=== PATIENT | male | born 2000 | race Two or more races ===

== ENCOUNTER 2023-04-05 13:57 | Emergency (ER) | payer BC ==
[2023-04-05] MEDS ORDERED: Ketorolac Tromethamine 30 MG (1 mL) VIAL ONE (15:04)
[2023-04-05 15:34] LABS: #Monocytes 0.6 thou/uL (0.11-0.59); %Basophils 0.3 % (0.0-1.0); %Eosinophils 0.1 % (0.0-10.0); %Lymphocytes 7.5 % (28.0-48.0); %Monocytes 4.4 % (0.0-4.0); %Neutrophils 87.1 % (31.0-61.0); Hematocrit 45.4 % (42.0-52.0); Hemoglobin 15.5 g/dL (14.0-18.0); Mean Corpuscular HGB CONC 34.1 g/dL (32.0-36.0); Mean Corpuscular Hemoglobin 30.6 pg (25.0-35.0); Mean Corpuscular Volume 89.7 fl (78.0-98.0); Mean Platelet Volume 10.3 fL (7.4-10.4); Platelet Count 242 10x3/uL (130-400); RBC Distribution Width 11.6 % (11.5-14.5); Red Blood Cell (RBC) Count 5.06 mill/uL (4.00-5.20); White Blood Cell (WBC) Count 12.6 10x3/uL (4.8-10.8)
[2023-04-05 15:55] LABS: ALT (SGPT) 16 U/L (8-55); AST (SGOT) 17 U/L (5-34); Albumin 4.4 g/dL (3.5-5.0); Alkaline Phosphatase 79 U/L (50-130); Anion Gap 14 mmol/L (10-20); BUN (Urea Nitrogen) 15 mg/dL (8.9-20.6); Bilirubin, Total 1.3 mg/dL (0.2-1.2); Calc. Creatinine Clearance 0 mL/min (70-130); Calcium 9.6 mg/dL (7.8-10.44); Carbon Dioxide 21 mmol/L (22-29); Chloride 106 mmol/L (98-107); Estimated GFR 128; Globulin 3.4 g/dL (2.4-3.5); Glucose 117 mg/dL (70-105); Lipase 7 U/L (8-78); Protein, Total 7.8 g/dL (6.0-8.3); Sodium 137 mmol/L (136-145)
[2023-04-05 15:58] LABS: Troponin I Less than 0.010 ng/mL (< 0.028)
[2023-04-05] MEDS ORDERED: Haloperidol Lactate 5 MG/ML VIAL ONE (17:13)
== END 2023-04-05 20:54 | disposition home or self-care (01) ==
LOC: ERS 13:57
DX: U07.1 COVID-19 (principal)
CPT/HCPCS: 36415; 71045; 80053; 83605; 83690; 84484; 85025; 93005; 96374; 96375; J1630; J1885